=== PATIENT | female | born 1990 | race African-American/Black ===

== ENCOUNTER 2019-10-08 23:00 | Emergency (ER) | payer OTHER ==
[~2019-10-08] VITALS: Ht 157.5 cm; Wt 54.4 kg
[2019-10-09] MEDS ORDERED: XANAX 0.25 MG0.25 MG PO (01:07)
[2019-10-09 01:11] VITALS: BP 140/91
== END 2019-10-09 01:15 | disposition home or self-care (01) ==
LOC: ER 23:00
DX: F41.0 Panic disorder [episodic paroxysmal anxiety] (principal); F41.9 Anxiety disorder, unspecified; J45.909 Unspecified asthma, uncomplicated; Z76.0 Encounter for issue of repeat prescription; Z88.1 Allergy status to other antibiotic agents

== ENCOUNTER 2019-12-30 20:51 | Emergency (ER) | payer OTHER ==
[~2019-12-30] VITALS: Ht 157.5 cm; Wt 56.7 kg
[~2019-12-30 20:51] MED LIST: XANAX 0.25 MG0.25 MG PO
[2019-12-30] MEDS ORDERED: PROAIR HFA8.5 GM INH (21:33)
[2019-12-30 23:01] VITALS: BP 133/94
== END 2019-12-30 22:57 | disposition home or self-care (01) ==
LOC: ER 20:51
DX: S61.304A Unspecified open wound of right ring finger with damage to nail, initial encounter (principal); S61.306A Unspecified open wound of right little finger with damage to nail, initial encounter; M54.2 Cervicalgia; R10.9 Unspecified abdominal pain; F41.0 Panic disorder [episodic paroxysmal anxiety]; J45.909 Unspecified asthma, uncomplicated; Z79.899 Other long term (current) drug therapy; Z88.1 Allergy status to other antibiotic agents; Z88.6 Allergy status to analgesic agent; Z88.0 Allergy status to penicillin; Y04.2XXA Assault by strike against or bumped into by another person, initial encounter; Y93.89 Activity, other specified; Y92.098 Other place in other non-institutional residence as the place of occurrence of the external cause; Y99.8 Other external cause status

== ENCOUNTER 2020-04-27 06:55 | Emergency (ER) | payer OTHER ==
[~2020-04-27] VITALS: Ht 157.5 cm; Wt 54.4 kg
[~2020-04-27 06:55] MED LIST changes: +PROAIR HFA8.5 GM INH
[2020-04-27] MEDS ORDERED: NOHOMEMEDICATIONS (07:10)
--- NOTE | 2020-04-27 07:24 | EKG ---
[address] [address] ELECTROCARDIOGRAM REPORT Name: REZA GAMEZORTIZ Room #: [facility].R.#: [id number] Admission: Attend Phys: Discharge: Date of : [birth year] Report #: [id number] [facility] ED Test Date: 2020-04-27 Test Time: 07:02:04 Pat Name: OLIVIA GAMEZ Department: Room: Gender: F Die Holder: tito : 1990 Requested By: Roberto Fenton Order Number: [id number] MD: Thanh Quan Measurements Intervals [place] Rate: 58 P: 73 [place]: 219 QRS: 44 QRSD: 82 T: 56 QT: 402 QTc: 395 Interpretive Statements Second degree AV block, Mobitz II No previous ECG available for comparison Electronically Signed On 04-27-2020 7:23:58 FACILITY ADMINISTRATOR by Thanh Quan [email or web address] <ELECTRONICALLY SIGNED> By: Thanh Quan MD, [facility] 04/27/20 0723 1 0702 Thanh Quan MD, FACC /EPI
[2020-04-27 07:39] LABS: ABSOLUTE NEUTROPHILS 5.2 thou/uL (1.4-8.2); BASOPHILS 0.6 % (0.0-2.0); EOSINOPHILS 3.8 % (0.0-3.0); HEMATOCRIT 37.4 % (37.0-47.0); LYMPHOCYTES 34.2 % (24.0-44.0); MCH 27.5 pg (26.0-34.0); MCHC 32.1 g/dL (28.0-37.0); MCV 85.6 fL (80.0-100.0); MONOCYTES 9.2 % (1.0-8.0); PLATELET COUNT 242 thou/uL (150-400); POLYS 52.2 % (36.0-66.0); RBC 4.38 mil/uL (4.20-5.00); RDW 13.5 % (10.5-14.5)
[2020-04-27 07:47] LABS: ANION GAP 12 mmol/L (7-16); BUN 13 mg/dL (7-18); CALCIUM 9.5 mg/dL (8.5-10.1); CHLORIDE 102 mmol/L (98-107); CO2 26 mmol/L (21-32); CREATININE 0.7 mg/dL (0.6-1.0); GLUCOSE 89 mg/dL (74-106); POTASSIUM 3.2 mmol/L (3.5-5.1); SODIUM 140 mmol/L (136-145)
[2020-04-27 07:57] LABS: MAGNESIUM 2.1 mg/dL (1.8-2.4); SGOT 19 U/L (15-37); SGPT 26 U/L (30-65); TOTAL BILIRUBIN 0.2 mg/dL (0.2-1.0); TOTAL PROTEIN 7.5 g/dL (6.4-8.2); TROPONIN-I <0.06 ng/mL (<0.06)
[2020-04-27 07:59] LABS: URINE BILIRUBIN NEGATIVE (Negative); URINE BLOOD NEGATIVE (Negative); URINE CLARITY CLEAR; URINE COLOR YELLOW; URINE GLUCOSE-RANDOM* NEGATIVE (Negative); URINE KETONES NEGATIVE (Negative); URINE LEUKOCYTES-REFLEX NEGATIVE (Negative); URINE NITRITE-REFLEX NEGATIVE (Negative); URINE PROTEIN (DIPSTICK) NEGATIVE (Negative); URINE SPECIFIC GRAVITY <= 1.005 (1.005-1.035); URINE UROBILINOGEN 0.2 E.U./dl (0.2-1.0)
[2020-04-27] MEDS ORDERED: PREDNISONE 20 M20 M1 PO ×2 (09:15→09:17)
[2020-04-27] MEDS ORDERED: ZPAK PO ×2 (09:15→09:17)
[2020-04-27 09:32] VITALS: BP 152/73
== END 2020-04-27 09:34 | disposition home or self-care (01) ==
LOC: ER 06:55
PROVIDERS: Emergency Medicine
DX: J20.9 Acute bronchitis, unspecified (principal); Z20.828 Contact with and (suspected) exposure to other viral communicable diseases; J45.909 Unspecified asthma, uncomplicated; Z79.899 Other long term (current) drug therapy; Z88.0 Allergy status to penicillin; Z88.1 Allergy status to other antibiotic agents; Z88.5 Allergy status to narcotic agent

== ENCOUNTER 2020-04-30 21:59 | Emergency (ER) | payer OTHER ==
[~2020-04-30] VITALS: Ht 154.9 cm; Wt 54.4 kg
[~2020-04-30 21:59] MED LIST changes: +NOHOMEMEDICATIONS; +PREDNISONE 20 M20 M1 PO; +ZPAK PO
[2020-04-30 22:43] LABS: HEMATOCRIT 38.6 % (37.0-47.0); HEMOGLOBIN 12.2 gm/dL (12.0-15.0); MCH 27.2 pg (26.0-34.0); MCHC 31.8 g/dL (28.0-37.0); MCV 85.6 fL (80.0-100.0); RBC 4.5 mil/uL (4.20-5.00); RDW 13.4 % (10.5-14.5); WBC 14.9 thou/uL (4.0-11.0)
[2020-04-30 22:45] LABS: ANION GAP 13 mmol/L (7-16); BUN 11 mg/dL (7-18); CALCIUM 9.1 mg/dL (8.5-10.1); CHLORIDE 98 mmol/L (98-107); CO2 25 mmol/L (21-32); CREATININE 0.9 mg/dL (0.6-1.0); GLUCOSE 79 mg/dL (74-106); POTASSIUM 3.4 mmol/L (3.5-5.1); SODIUM 136 mmol/L (136-145)
[2020-04-30 22:54] LABS: TROPONIN-I <0.06 ng/mL (<0.06)
[2020-05-01 00:13] VITALS: BP 111/60
--- NOTE | 2020-05-01 07:45 | EKG ---
[address] [address] [place] [address] ELECTROCARDIOGRAM REPORT Name: OLIVIA GAMEZ Room #: [facility] DION Marcial#: [id number] Admission: 04/30/20 Attend Phys: Discharge: 05/01/20 Date of : [birth year] Report #: [id number] [facility] ED Test Date: 2020-04-30 Test Time: 22:39:33 Pat Name: OLIVIA GAMEZ Department: Room: Gender: F Cheesemaker Helper: ELI : 1990 Requested By: Imtiaz Rivera Order Number: [id number] MD: Glenn Davidson Measurements Intervals [place] Rate: 78 P: 58 SD: 185 QRS: 36 QRSD: 83 T: 47 QT: 364 QTc: 415 Interpretive Statements Sinus rhythm Normal tracing Compared to ECG 04/27/2020 07:02:04 Second-degree AV block, Mobitz type I (Wenckebach) no longer present Electronically Signed On 05-01-2020 7:45:37 CIRCULAR KNITTER HELPER by Glenn Davidson [email or web address] <ELECTRONICALLY SIGNED> By: Glenn Davidson MD, [facility] 05/01/20 0745 2239 38 Glenn Davidson MD, FACC /EPI
== END 2020-05-01 00:19 | disposition home or self-care (01) ==
LOC: ER 21:59
PROVIDERS: Emergency Medicine
DX: R51.9 Headache, unspecified (principal); R06.02 Shortness of breath; R50.9 Fever, unspecified; J45.909 Unspecified asthma, uncomplicated; F41.9 Anxiety disorder, unspecified; Z79.2 Long term (current) use of antibiotics; Z79.899 Other long term (current) drug therapy; Z88.1 Allergy status to other antibiotic agents; Z88.6 Allergy status to analgesic agent; Z88.0 Allergy status to penicillin

== ENCOUNTER 2020-05-31 06:55 | Emergency (ER) | payer OTHER ==
[~2020-05-31] VITALS: Ht 157.5 cm; Wt 52.2 kg
--- NOTE | ~2020-05-31 | EMS ---
[address] [address] EMS Patient Care Report Name: JASON GAMEZ Room #: PRE Aniket#: [id number] Admission: Attend Phys: Discharge: Date of : [birth year] Report #: [id number] THIS REPORT FOR: //name// Report Transmitted: 05/31/2020 06:39 EMS [facility] Incident [id number] @ 05/31/2020 06:24 Incident Location [address] [place] [address] Patient JASON GAMEZ Female, 29 Years 1990 Patient Address [address] [place] [address] Patient History None Reported, Patient Allergies Penicillin allergy,Hydrocodone,Amoxicillin, Patient Medications Aspirin, Chief Complaint chest pain Disposition Transported No Lights/[place] Dispatch Reason Chest Pain (Non-Traumatic) Transported To [facility] Narrative Arriving on scene to find the patient, Jason Gamez, sitting in her bedroom and appearing to be in no obvious distress. She stated that her chest is [address] [address] EMS Patient Care Report Name: JASON GAMEZ Room #: PRE M.R.#: [id number] Admission: Attend Phys: Discharge: Date of : [birth year] Report #: [id number] hurting again and is not feeling well. EMS had preciously transported Jason yesterday for the same issue. She denied loss of consciousness, dizziness, and or trauma. She requested to be transported to [place] this morning. She was assisted via walking to the ambulance. Transporting to [place], there were no additional findings on continuous assessments. Arriving at [place] ED, Jason was taken to room 5 and moved via stand and sit onto the hospital bed. Report and care was given to RN. Initial Vitals @06:39P: 80,SpO2: 100,[place] Suspected: false @06:49P: 83,BP: 117/72,SpO2: 99, @06:49P: 73,SpO2: 100, @06:36P: 74,R: 16,BP: 138/104,Pain: 10/10,GCS: 15,SpO2: 98,Revised Trauma: 12, Assessments @06:35MENTAL:Person Oriented,Time Oriented,Event Oriented,Place Oriented,SKIN:HEENT:Head/Face: No Abnormalities,LUNG SOUNDS:General: No Abnormalities,ABDOMEN:General: No Abnormalities,PELVIS//GI:EXTREMITIES:Left Arm: No Abnormalities,Right Arm: No Abnormalities,Left Leg: No Abnormalities,Right Leg: No Abnormalities,PULSE:NEURO: Impression Chest Pain / Discomfort Procedures @06:44Surgical Mask on PatientResponse: Unchanged@PTAAspirin - 324 Milligrams (mg) - OralResponse: Improved@06:3912-Lead ECG Timeline STUDIO CONTROL OPERATOR,Aspirin - 324 Milligrams (mg) - Oral,Response: Improved 06:23,Call Received 06:23,Psap Call 06:24,Dispatched 06:26,En Route 06:31,On Scene 06:32,At Patient 06:36,BP: 138/104 M,PULSE: 74,RR: 16 R,SPO2: 98 Ox,ETCO2: ,BG: ,PAIN: 10,GCS: 15, 06:39,12-Lead ECG, 06:39,BP: / M,PULSE: 80,RR: R,SPO2: 100 Ox,ETCO2: ,BG: ,PAIN: ,GCS: , 06:43,Depart Scene 06:44,Surgical Mask on Patient,Response: Unchanged 06:49,BP: / M,PULSE: 73,RR: R,SPO2: 100 Ox,ETCO2: ,BG: ,PAIN: ,GCS: , 06:49,BP: 117/72 M,PULSE: 83,RR: R,SPO2: 99 Ox,ETCO2: ,BG: ,PAIN: ,GCS: , 06:52,At Destination 07:07,Call Closed [facility] [address] [place] [address] EMS Patient Care Report Name: JASON GAMEZ Room #: PRE M.R.#: [id number] Admission: Attend Phys: Discharge: Date of : [birth year] Report #: [id number] Disclaimer v1.1 Copyright 2020 [employer] This EMS Care Summary contains data elements from the applicable legal record (which may be displayed differently). It is designed to provide pertinent information for the following purposes: continuity of care, clinical quality, and state data reporting. The complete legal record is available to ED staff and administrators of the receiving hospital in [facility]'s Patient Tracker. All data is provided "as is."
[2020-05-31 07:36] LABS: HEMOGLOBIN 12.1 gm/dL (12.0-15.0); MCH 27.3 pg (26.0-34.0); MCHC 32.6 g/dL (28.0-37.0); MCV 83.7 fL (80.0-100.0); RBC 4.42 mil/uL (4.20-5.00); RDW 13.1 % (10.5-14.5); WBC 10.5 thou/uL (4.0-11.0)
[2020-05-31 07:50] LABS: ANION GAP 9 mmol/L (7-16); BUN 7 mg/dL (7-18); CHLORIDE 102 mmol/L (98-107); CO2 27 mmol/L (21-32); CREATININE 0.7 mg/dL (0.6-1.0); GLUCOSE 85 mg/dL (74-106); SODIUM 138 mmol/L (136-145)
[2020-05-31 07:55] LABS: POTASSIUM 4.3 mmol/L (3.5-5.1)
[2020-05-31 07:58] LABS: URINE BILIRUBIN NEGATIVE (Negative); URINE BLOOD NEGATIVE (Negative); URINE CLARITY CLEAR; URINE COLOR YELLOW; URINE GLUCOSE-RANDOM* NEGATIVE (Negative); URINE KETONES NEGATIVE (Negative); URINE LEUKOCYTES-REFLEX NEGATIVE (Negative); URINE NITRITE-REFLEX NEGATIVE (Negative); URINE PROTEIN (DIPSTICK) NEGATIVE (Negative); URINE SPECIFIC GRAVITY <= 1.005 (1.005-1.035); URINE UROBILINOGEN 0.2 E.U./dl (0.2-1.0)
[2020-05-31 07:59] LABS: SGOT 30 U/L (15-37); SGPT 34 U/L (14-59); TOTAL BILIRUBIN 0.6 mg/dL (0.2-1.0); TOTAL PROTEIN 7.8 g/dL (6.4-8.2); TROPONIN-I <0.06 ng/mL (<0.06)
[2020-05-31 08:07] LABS: AMP/METHAMP Negative (Negative); BARBITURATES Negative (Negative); BENZODIAZEPINES Negative (Negative); COCAINE Negative (Negative); METHADONE Negative (Negative); OPIATES Negative (Negative); PCP Negative (Negative)
[2020-05-31 08:28] VITALS: BP 118/75
--- NOTE | 2020-05-31 13:36 | EKG ---
[address] [place] [address] ELECTROCARDIOGRAM REPORT Name: OLIVIA GAMEZ Room #: [facility] DION Marcial#: [id number] Admission: 05/31/20 Attend Phys: Discharge: 05/31/20 Date of : [birth year] Report #: [id number] [facility] ED Test Date: 2020-05-31 Test Time: 06:58:18 Pat Name: OLIVIA GAMEZ Department: Room: Gender: F Military Technician: BEL : 1990 Requested By: Reyes Alvarez Order Number: [id number] MD: Thanh Quan Measurements Intervals [place] Rate: 67 P: 58 [place]: 161 QRS: 23 QRSD: 79 T: 45 QT: 365 QTc: 386 Interpretive Statements Sinus rhythm Compared to ECG 04/30/2020 22:39:33 No significant changes Electronically Signed On 05-31-2020 13:35:52 SCHOOL GUIDANCE COUNSELOR by Thanh Quan [email or web address] <ELECTRONICALLY SIGNED> By: Thanh Quan MD, [facility] 05/31/20 1335 0658 0658 Thanh Quan MD, FACEloina /EPI
== END 2020-05-31 08:33 | disposition home or self-care (01) ==
LOC: ER 06:55
PROVIDERS: Emergency Medicine
DX: R07.89 Other chest pain (principal); R20.0 Anesthesia of skin; R20.2 Paresthesia of skin; R55 Syncope and collapse; F41.0 Panic disorder [episodic paroxysmal anxiety]; J45.909 Unspecified asthma, uncomplicated; Z79.899 Other long term (current) drug therapy; Z88.1 Allergy status to other antibiotic agents; Z88.6 Allergy status to analgesic agent; Z88.0 Allergy status to penicillin

== ENCOUNTER 2020-06-26 01:42 | Emergency (ER) | payer BC ==
[~2020-06-26] VITALS: Ht 157.5 cm; Wt 52.2 kg
[2020-06-26 02:36] LABS: ABSOLUTE NEUTROPHILS 4.6 thou/uL (1.4-8.2); BASOPHILS 0.5 % (0.0-2.0); EOSINOPHILS 3.6 % (0.0-3.0); HEMATOCRIT 35.1 % (37.0-47.0); HEMOGLOBIN 11.4 gm/dL (12.0-15.0); LYMPHOCYTES 28.6 % (24.0-44.0); MCHC 32.6 g/dL (28.0-37.0); MCV 82.7 fL (80.0-100.0); MONOCYTES 6.6 % (1.0-8.0); PLATELET COUNT 283 thou/uL (150-400); POLYS 60.7 % (36.0-66.0); RBC 4.24 mil/uL (4.20-5.00); RDW 13.3 % (10.5-14.5); WBC 7.6 thou/uL (4.0-11.0)
[2020-06-26 02:45] LABS: ANION GAP 10 mmol/L (7-16); BUN 9 mg/dL (7-18); CALCIUM 9.1 mg/dL (8.5-10.1); CHLORIDE 98 mmol/L (98-107); CO2 29 mmol/L (21-32); CREATININE 0.9 mg/dL (0.6-1.0); GLUCOSE 92 mg/dL (74-106); POTASSIUM 3.6 mmol/L (3.5-5.1); SODIUM 137 mmol/L (136-145)
[2020-06-26 02:55] LABS: ALBUMIN 3.9 g/dL (3.4-5.0); SGOT 17 U/L (15-37); SGPT 27 U/L (30-65); TOTAL BILIRUBIN 0.3 mg/dL (0.2-1.0); TOTAL PROTEIN 7.5 g/dL (6.4-8.2); TROPONIN-I <0.06 ng/mL (<0.06)
[2020-06-26 03:07] LABS: URINE BILIRUBIN NEGATIVE (Negative); URINE BLOOD TRACE (Negative); URINE CLARITY CLEAR; URINE COLOR YELLOW; URINE GLUCOSE-RANDOM* NEGATIVE (Negative); URINE KETONES NEGATIVE (Negative); URINE LEUKOCYTES-REFLEX NEGATIVE (Negative); URINE NITRITE-REFLEX NEGATIVE (Negative); URINE PROTEIN (DIPSTICK) NEGATIVE (Negative); URINE SPECIFIC GRAVITY <= 1.005 (1.005-1.035); URINE UROBILINOGEN 0.2 E.U./dl (0.2-1.0)
[2020-06-26 03:17] VITALS: BP 124/77
--- NOTE | 2020-06-26 06:49 | EKG ---
[address] [address] [facility] [place] [address] ELECTROCARDIOGRAM REPORT Name: OLIVIA GAMEZ Room #: [facility] DION Marcial#: [id number] Admission: 06/26/20 Attend Phys: Discharge: 06/26/20 Date of : [birth year] Report #: [id number] [facility] ED Test Date: 2020-06-26 Test Time: 02:35:10 Pat Name: OLIVIA GAMEZ Department: Room: Gender: F Neck Cutter: ale kimble rn : 1990 Requested By: Roberto Fenton Order Number: [id number] MD: Thanh Quan Measurements Intervals [place] Rate: 67 P: 52 [place]: 180 QRS: 26 QRSD: 81 T: 50 QT: 382 QTc: 404 Interpretive Statements Sinus rhythm Baseline wander in lead(s) V3 Compared to ECG 05/31/2020 06:58:18 No significant changes Electronically Signed On 06-26-2020 6:48:49 WOODEN BOX MAKER by Thanh Quan [email or web address] <ELECTRONICALLY SIGNED> By: Thanh Quan MD, [facility] 06/26/20 [phone] 0235 Thanh Quan MD, FACC /EPI
== END 2020-06-26 03:26 | disposition home or self-care (01) ==
LOC: ER 01:42
PROVIDERS: Emergency Medicine
DX: R07.9 Chest pain, unspecified (principal); R25.1 Tremor, unspecified; J45.909 Unspecified asthma, uncomplicated; Z79.899 Other long term (current) drug therapy; Z88.0 Allergy status to penicillin; Z88.1 Allergy status to other antibiotic agents; Z88.5 Allergy status to narcotic agent

== ENCOUNTER 2020-06-27 02:23 | Emergency (ER) | payer BC ==
[~2020-06-27] VITALS: Ht 154.9 cm; Wt 54.4 kg
[2020-06-27 03:57] VITALS: BP 126/78
--- NOTE | 2020-06-27 15:37 | EKG ---
[address] [place] [address] ELECTROCARDIOGRAM REPORT Name: OLIVIA GAMEZ Room #: [facility] DION Marcial#: [id number] Admission: 06/27/20 Attend Phys: Discharge: 06/27/20 Date of : [birth year] Report #: [id number] [facility] ED Test Date: 2020-06-27 Test Time: 03:02:43 Pat Name: OLIVIA GAMEZ Department: Room: Gender: F Premium Cancellation Clerk: KERRI : 1990 Requested By: Aquilino Michael Order Number: [id number] MD: Thanh Quan Measurements Intervals [place] Rate: 70 P: 40 MT: 264 QRS: 34 QRSD: 78 T: 57 QT: 386 QTc: 417 Interpretive Statements Sinus rhythm Prolonged MT interval Probable left atrial enlargement Compared to ECG 06/26/2020 02:35:10 First degree AV block now present Electronically Signed On 06-27-2020 15:36:48 GARMENT FOLDER by Thanh Quan [email or web address] <ELECTRONICALLY SIGNED> By: Tahnh Quan MD, [facility] 06/27/20 1536 030 030 Thanh Quan MD, FACC /EPI
== END 2020-06-27 03:50 | disposition home or self-care (01) ==
LOC: ER 02:23
DX: I10 Essential (primary) hypertension (principal); J45.909 Unspecified asthma, uncomplicated; Z79.899 Other long term (current) drug therapy; Z88.0 Allergy status to penicillin; Z88.1 Allergy status to other antibiotic agents; Z88.5 Allergy status to narcotic agent

== ENCOUNTER 2020-08-11 15:48 | Emergency (ER) | payer BC ==
[~2020-08-11] VITALS: Ht 157.5 cm; Wt 56.7 kg
--- NOTE | ~2020-08-11 | EMS ---
[address] [address] EMS Patient Care Report Name: OLIVIA GAMEZ Room #: [facility] DION Marcial#: [id number] Admission: 08/11/20 Attend Phys: Discharge: Date of : [birth year] Report #: [id number] THIS REPORT FOR: //name// Report Transmitted: 08/11/2020 15:43 EMS Care Summary [facility] MED-ACT Incident [id number] @ 08/11/2020 15:04 Incident Location [address] [place] [address] Patient OLIVIA "CASEY" Charlene GAMEZ Female, 29 Years 1990 Patient Address [address] [place] [address] Patient History Cardiac Arrythmia, Patient Allergies Penicillin allergy,Hydrocodone,Amoxicillin, Patient Medications Aspirin, Other, Potassium, Multivitamin, Chief Complaint chest tightness Disposition Transported No Lights/[place] Dispatch Reason Chest Pain (Non-Traumatic) Transported To [facility] Narrative Arrived to find pt seated on the couch in her apartment, a&ox4, c/o chest pain and in the presence of [facility] [address] EMS Patient Care Report Name: OLIVIA GAMEZ Room #: REG Aniket#: [id number] Admission: 08/11/20 Attend Phys: Discharge: Date of : [birth year] Report #: [id number] Pt reports that she was diagnosed with a heart block and is under the care of a trophy assembler for it. Pt reports that she works part-time nights so she sleeps the day. Today, pt was awakened from her sleep with chest pain. Pt describes it as a "tightness" in her chest that lef to an anxiety attack with numbness in her hands and feet and nausea. Pt took 81mg ASA prior to EMS arrival as dispatch had advised. Pt reports she is going through a divorce currently and is under an increased amount of stress. PT reports she tries to eat health, get plenty of exercise and takes her OTC supplements. Pt was able to walk down the steps to the MICU and up onto the cot without difficulty. Pt reports she feels better when she is walking. Pt was secured with cot straps and transported non-emergent to [facility] as pt requested. Pt was able to stand from the cot and take a couple of steps to the hospital bed without incident. Pt report and transfer of care given to FUR TRIMMING MACHINE OPERATOR room #2 . Initial Vitals @15:17P: 98, @15:14P: 97,[place] Suspected: false @15:18P: 128,R: 20,BP: 135/85,SpO2: 100, @PTAP: 92,R: 20,BP: 155/100,Pain: 10/10,GCS: 15,Glucose: 95,SpO2: 100,Revised Trauma: 12, @15:28P: 73, @15:42P: 82,BP: 150/101, @15:27P: 85,R: 20,BP: 135/87,Pain: 4/10,GCS: 15,Temp: 98.1F,SpO2: 100,Revised Trauma: 12, Assessments @15:15MENTAL:Person Oriented,Time Oriented,Place Oriented,Event Oriented,SKIN:HEENT:Head/Face: No Abnormalities,Neck/Airway: No Abnormalities,LUNG SOUNDS:General: No Abnormalities,ABDOMEN:General: No Abnormalities,PELVIS//GI:EXTREMITIES:Left Arm: No Abnormalities,Right Arm: No Abnormalities,Left Leg: No Abnormalities,Right Leg: No Abnormalities,PULSE:Radial: 2+ Normal,NEURO:No Abnormalities, Impression Cardiac arrhythmia/dysrhythmia Procedures @ONS60-Jejl ECGResponse: UnchangedSucceeded@16:19Saline Lock 10cc (18 ga) Site: Antecubital-LeftResponse: UnchangedSucceeded@PTASurgical Mask on PatientResponse: Unchanged Timeline [facility] [address] [place] [address] EMS Patient Care Report Name: OLIVIA GAMEZ Room #: REG DION Marcial#: [id number] Admission: 08/11/20 Attend Phys: Discharge: Date of : [birth year] Report #: [id number] ROCK MASON APPRENTICE,12-Lead ECG,Response: UnchangedSucceeded, ROCK MASON APPRENTICE,Surgical Mask on Patient,Response: Unchanged ROCK MASON APPRENTICE,BP: 155/100 M,PULSE: 92,RR: 20 R,SPO2: 100 Ox,ETCO2: ,B,PAIN: 10,GCS: 15, 15:03,Call Received 15:03,Psap Call 15:04,Dispatched 15:04,En Route 15:12,On Scene 15:13,At Patient 15:14,BP: / M,PULSE: 97,RR: R,SPO2: Ox,ETCO2: ,BG: ,PAIN: ,GCS: , 15:17,BP: / M,PULSE: 98,RR: R,SPO2: Ox,ETCO2: ,BG: ,PAIN: ,GCS: , 15:18,BP: 135/85 M,PULSE: 128,RR: 20 R,SPO2: 100 Ox,ETCO2: ,BG: ,PAIN: ,GCS: , 15:27,BP: 135/87 M,PULSE: 85,RR: 20 R,SPO2: 100 Ox,ETCO2: ,BG: ,PAIN: 4,GCS: 15, 15:28,BP: / M,PULSE: 73,RR: R,SPO2: Ox,ETCO2: ,BG: ,PAIN: ,GCS: , 15:34,Depart Scene 15:42,BP: 150/101 M,PULSE: 82,RR: R,SPO2: Ox,ETCO2: ,BG: ,PAIN: ,GCS: , 15:43,At Destination 16:19,Saline Lock 10cc 18 ga Site: Antecubital-Left,Response: UnchangedSucceeded, 16:42,Call Closed Disclaimer v1.1 Copyright 2020 [employer] This EMS Care Summary contains data elements from the applicable legal record (which may be displayed differently). It is designed to provide pertinent information for the following purposes: continuity of care, clinical quality, and state data reporting. The complete legal record is available to ED staff and administrators of the receiving hospital in [employer]'s Patient Tracker. All data is provided "as is."
[2020-08-11 16:14] LABS: HEMATOCRIT 35.4 % (37.0-47.0); HEMOGLOBIN 11.6 gm/dL (12.0-15.0); MCH 26.9 pg (26.0-34.0); MCHC 32.7 g/dL (28.0-37.0); MCV 82.3 fL (80.0-100.0); RBC 4.3 mil/uL (4.20-5.00); RDW 13.8 % (10.5-14.5); WBC 8.6 thou/uL (4.0-11.0)
[2020-08-11 16:25] LABS: ANION GAP 11 mmol/L (7-16); BUN 13 mg/dL (7-18); CALCIUM 8.9 mg/dL (8.5-10.1); CHLORIDE 104 mmol/L (98-107); CO2 27 mmol/L (21-32); CREATININE 0.9 mg/dL (0.6-1.0); GLUCOSE 86 mg/dL (74-106); POTASSIUM 3.8 mmol/L (3.5-5.1); SODIUM 142 mmol/L (136-145)
[2020-08-11 16:35] LABS: SGOT 20 U/L (15-37); SGPT 22 U/L (14-59); TOTAL BILIRUBIN 0.5 mg/dL (0.2-1.0); TROPONIN-I <0.06 ng/mL (<0.06)
[2020-08-11 18:08] VITALS: BP 112/70
--- NOTE | 2020-08-14 07:16 | EKG ---
[address] [place] [address] ELECTROCARDIOGRAM REPORT Name: OLIVIA GAMEZ Room #: [facility] DION Marcial#: [id number] Admission: 08/11/20 Attend Phys: Discharge: 08/11/20 Date of : [birth year] Report #: [id number] [facility] ED Test Date: 2020-08-11 Test Time: 15:55:30 Pat Name: OLIVIA GAMEZ Department: Room: Gender: F Acetylene Torch Solderer: : 1990 Requested By: Alexandra Kimble Order Number: [id number] MD: Thanh Quan Measurements Intervals [place] Rate: 87 P: 72 [place]: 170 QRS: 29 QRSD: 73 T: 45 QT: 367 QTc: 442 Interpretive Statements Sinus rhythm Compared to ECG 06/27/2020 03:02:43 First degree AV block no longer present Electronically Signed On 08-14-2020 7:16:13 CDT by Thanh Quan [email or web address] <ELECTRONICALLY SIGNED> By: Thanh Quan MD, [facility] 08/14/20 0716 1555 1555 Thanh Quan MD, FACC /EPI
== END 2020-08-11 18:09 | disposition home or self-care (01) ==
LOC: ER 15:48
PROVIDERS: Nurse Practitioner Family
DX: R00.2 Palpitations (principal); K59.00 Constipation, unspecified; R53.83 Other fatigue; J45.909 Unspecified asthma, uncomplicated; Z79.899 Other long term (current) drug therapy; Z88.0 Allergy status to penicillin; Z88.1 Allergy status to other antibiotic agents; Z88.5 Allergy status to narcotic agent

== ENCOUNTER 2020-08-17 03:30 | Emergency (ER) | payer OTHER ==
[~2020-08-17] VITALS: Ht 157.5 cm; Wt 68.0 kg
[2020-08-17 05:04] LABS: ABSOLUTE NEUTROPHILS 5.6 thou/uL (1.4-8.2); BASOPHILS 0.4 % (0.0-2.0); EOSINOPHILS 4.2 % (0.0-3.0); HEMATOCRIT 35.8 % (37.0-47.0); HEMOGLOBIN 11.5 gm/dL (12.0-15.0); LYMPHOCYTES 28.6 % (24.0-44.0); MCH 26.6 pg (26.0-34.0); MCHC 32.2 g/dL (28.0-37.0); MCV 82.5 fL (80.0-100.0); MONOCYTES 9.4 % (1.0-8.0); PLATELET COUNT 299 thou/uL (150-400); POLYS 57.4 % (36.0-66.0); RBC 4.34 mil/uL (4.20-5.00); RDW 13.5 % (10.5-14.5); WBC 9.8 thou/uL (4.0-11.0)
[2020-08-17 05:10] LABS: ANION GAP 8 mmol/L (7-16); BUN 7 mg/dL (7-18); CHLORIDE 104 mmol/L (98-107); CO2 28 mmol/L (21-32); CREATININE 0.8 mg/dL (0.6-1.0); GLUCOSE 103 mg/dL (74-106); POTASSIUM 3.5 mmol/L (3.5-5.1); SODIUM 140 mmol/L (136-145)
[2020-08-17 05:18] LABS: TROPONIN-I <0.06 ng/mL (<0.06)
[2020-08-17] MEDS ORDERED: NEXIUM 40 MG CA40 M1 PO (05:40)
[2020-08-17 05:56] VITALS: BP 115/73
--- NOTE | 2020-08-17 07:03 | EKG ---
[address] [address] ELECTROCARDIOGRAM REPORT Name: OLIVIA GAMEZ Room #: [facility] DION Marcial#: [id number] Admission: 08/17/20 Attend Phys: Discharge: 08/17/20 Date of : [birth year] Report #: [id number] [facility] ED Test Date: 2020-08-17 Test Time: 03:39:24 Pat Name: OLIVIA GAMEZ Department: Room: Gender: F Unitizer: KERRI : 1990 Requested By: Miguel Maurer Order Number: [id number] MD: Thanh Quan Measurements Intervals [place] Rate: 57 P: 58 PA: 176 QRS: 33 QRSD: 80 T: 46 QT: 403 QTc: 393 Interpretive Statements Sinus rhythm Compared to ECG 08/11/2020 15:55:30 No significant changes Electronically Signed On 08-17-2020 7:02:55 CDT by Thanh Quan [email or web address] <ELECTRONICALLY SIGNED> By: Thanh Quan MD, [facility] 08/17/20 0702 0339 0339 Thanh Quan MD, FACC /EPI
== END 2020-08-17 06:14 | disposition home or self-care (01) ==
LOC: ER 03:30
PROVIDERS: Emergency Medicine
DX: R07.89 Other chest pain (principal); J45.909 Unspecified asthma, uncomplicated; Z88.1 Allergy status to other antibiotic agents; Z88.5 Allergy status to narcotic agent; Z88.0 Allergy status to penicillin